=== PATIENT | female | born 1970 | race Caucasian/White ===

== ENCOUNTER 2016-12-13 21:55 | Emergency (ER) | payer OTHER ==
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
[2016-12-13] MEDS: HYDROcodone /APAP 10/325 1 EACH TABLET PO ONE (22:32)
--- NOTE | 2016-12-13 22:55 | Diagnostic Imaging Report ---
ANGEL WILLIAM [facility] [id number] [facility] [address] [place] [address]. [id number] Report Submission Date: Dec 13, 2016 10:52:56 PM CDT Patient Study Name: RIKA KRISHNAN Date: Dec 13, 2016 10:31:19 PM CDT Modality Type: CT\SR Gender: F Description: CT MAXILLOFACIAL W/O D : 74 Institution: [facility] Physician: ANGEL WILLIAM CT facial bones Clinical history foreign body Technique: Helical axial CT slices were performed through the facial bones with sagittal and coronal reconstructions Findings: There is a air in the left facial soft tissues. A 5 mm metallic foreign bodies and better than the left masseter muscle. There is air in the left masseter muscle. There is multi sinus mucosal thickening. The orbits appear intact. Visualized nasopharynx is unremarkable. Maxillary sinus ostia are patent. Impression: 5 mm metallic foreign body in the left masseter muscle with air in the soft tissues the left T10 masseter muscle No underlying bony lesion identified Multi sinus mucosal thickening. Electronically signed on Dec 13, 2016 10:52:56 PM CDT by: Hardeep BALLARD
[2016-12-14] MEDS: TETANUS IMMUNE GLOBULIN/PF 250 UNIT DISP.SYRIN IM ONE (00:15)
[2016-12-14] MEDS: HYDROcodone /APAP 10/325 1 EACH TABLET PO ONE (00:25)
[2016-12-14 00:42] VITALS: BP 148/72
== END 2016-12-14 00:20 | disposition home or self-care (01) ==
LOC: ED 21:55
DX: S09.93XA Unspecified injury of face, initial encounter (principal); W34.00XA Accidental discharge from unspecified firearms or gun, initial encounter; Y93.9 Activity, unspecified; Y99.9 Unspecified external cause status
CPT/HCPCS: 70486; J1670; 90471; 99283

== ENCOUNTER 2017-02-19 08:08 | Outpatient (CLI) | payer OTHER | END 2017-02-19 08:15 | LOC: LAB 08:08 | PROVIDERS: ATTEND Nurse Practitioner Family | DX: R05 Cough (principal) | CPT/HCPCS: 87070; 87116; 87205; 87206 ==

== ENCOUNTER 2018-04-24 08:14 | Outpatient (CLI) | payer BC | END 2018-04-24 08:15 | LOC: LAB 08:14 | PROVIDERS: ATTEND Internal Medicine Pulmonary Disease | DX: R05 Cough (principal); B44.9 Aspergillosis, unspecified; J45.20 Mild intermittent asthma, uncomplicated | CPT/HCPCS: 87116; 87206 ==

== ENCOUNTER 2018-04-25 08:49 | Outpatient (CLI) | payer BC | END 2018-04-25 08:50 | LOC: LAB 08:49 | PROVIDERS: ATTEND Internal Medicine Pulmonary Disease | DX: R05 Cough (principal); B44.9 Aspergillosis, unspecified; J45.20 Mild intermittent asthma, uncomplicated | CPT/HCPCS: 87116; 87206 ==

== ENCOUNTER 2018-04-26 09:05 | Outpatient (CLI) | payer BC ==
[2018-04-26 10:32] LABS: BASOPHILS % 0.5 (0.0-1.5); EOSINOPHILS % 5.3 % (0.0-6.8); MEAN CORPUSCULAR HEMOGLOBIN 29.3 pg (28.0-34.0); MONOCYTES % 6.4 % (0.0-11.0); NEUTROPHILS # 2.2 # k/uL (1.4-7.7)
== END 2018-04-26 10:00 ==
LOC: LAB 09:05
PROVIDERS: ATTEND Internal Medicine Pulmonary Disease
DX: R05 Cough (principal); B44.9 Aspergillosis, unspecified; J45.20 Mild intermittent asthma, uncomplicated
CPT/HCPCS: 36415; 82785; 85025; 87116; 87206

== ENCOUNTER 2019-04-07 11:00 | Emergency (ER) | payer BC ==
[2019-04-07] MEDS ORDERED: 0.9 % SODIUM CHLORIDE 1,000 ML IV ONE ×2 (11:21→12:21)
--- NOTE | 2019-04-07 11:26 | ED Physician Documentation ---
General Adult - HISTORIAN Historian: patient - HPI Stated Complaint: accidental ativan overdose Chief Complaint: General Adult Onset: hours Timing: still present Severity: mild Further Comments: yes (Pt is a 49 yo female with pneumonia, who is supposed to take 4 prednisone tablets as part of her pneumonia tx, but by mistake took 4 tablets of ativan 1 mg (=4 mg). Pt is getting sleepy.) - ROS CONST: other (sleepy) EYES/ENT: none CVS/RESP: other (recent dx pneumonia) GI/: none MS/SKIN/LYMPH: none - PAST HX Past History: other (anxiety, pneumonia) Surgeries/Procedures: BTL, other (cervical ablation, back surgery) Allergies/Adverse Reactions: Allergies Allergy/AdvReac Type Severity Reaction Status Date / Time latex Allergy Intermediate Rash Verified 04/07/19 11:52 Home Medications: Ambulatory Orders Medication Instructions Recorded LORazepam [Ativan] 0.5 mg PO DAILY 04/07/19 LevoFLOXacin [Levaquin] 500 mg PO DAILY 04/07/19 Prednisone 10 mg PO DIRECTED 04/07/19 - SOCIAL HX Smoking History: quit greater than 1 year - FAMILY HX Family History: No - VITAL SIGNS Vital Signs: Vital Signs Temp Pulse Resp BP Pulse Ox 148/72 12/14/16 00:20 - REVIEWED ASSESSMENTS Nursing Assessment Reviewed: Yes Vitals Reviewed: Yes Progress - Progress Progress: Pt took 4 mg Ativan by mistake. Not a serious concern for significant overdose. Observed for 4 hrs. d/c to home. General Adult Physical Exam - PHYSICAL EXAM GENERAL APPEARANCE: no distress EENT: pharynx normal NECK: normal inspection, supple RESPIRATORY: no resp distress, chest non-tender, breath sounds normal CVS: reg rate & rhythm, heart sounds normal ABDOMEN: soft, no organomegaly, normal bowel sounds BACK: normal inspection SKIN: warm/dry, normal color EXTREMITIES: non-tender, normal range of motion, no evidence of injury NEURO: oriented X3, motor nml, sensation nml Discharge Clincal Impression: accidental excess Ativan ingestion Referrals: Isa Stapleton PRN [Primary Care Provider] - Condition: Stable Disposition: 01 HOME, SELF-CARE Decision to Admit: NO Decision Time: 14:03
[2019-04-07 13:01] LABS: eGFR (Non-African) > 60
[2019-04-07 13:02] LABS: BASOPHILS % 0.9 % (0.0-1.5); NEUTROPHILS # 3.6 # k/uL (1.4-7.7)
[2019-04-07 14:09] VITALS: BP 123/69
== END 2019-04-07 14:08 | disposition home or self-care (01) ==
LOC: ED 11:00
DX: T42.4X1A Poisoning by benzodiazepines, accidental (unintentional), initial encounter (principal)
CPT/HCPCS: 80053; 85025; 96360; 99282; 99284; J7030; S1016